=== PATIENT | male | born 1955 ===

== ENCOUNTER 2022-12-22 10:18 | Outpatient (REF) | payer MEDICARE, MEDICAID, SELFPAY ==
--- NOTE | 2022-12-23 09:28 | MHC.AU.MED ---
Medical Clearance for Hearing Instrumentation Date: 12/22/22 Patient Name: Bereket Moreland Date of : 1955 Primary Care Provider: Referring Provider: ANTONIO Sanchez We have seen your patient on 12/22/22 and have determined that they are a candidate for amplification (See accompanying report). Specifically, they would benefit from: Hearing aid use in both ears There is a statute that addresses Medical Evaluation Requirements prior to fitting a patient with a hearing aid. According to [place] statute 265 CMR:6.03(1), (a) General. Except as provided in 265 CMR 6.03(1)(b), a infant caregiver shall not sell a hearing aid unless the prospective user has presented to the infant caregiver a written statement signed by a licensed physician that states that the patient's hearing loss has been medically evaluated and the patient may be considered a candidate for a hearing aid. The medical evaluation must have taken place within the preceding six months. Please note: Due to the [place] Statute referenced above, we cannot accept a signature other than that of a licensed physician. PRE K SPECIAL EDUCATION TEACHER and PA signatures cannot be accepted. I am in agreement with the above recommendation. There is no medical contraindication for hearing instrumentation. Physician Signature Date Physician Name (Printed)
--- NOTE | 2022-12-23 09:41 | MHC.AU.HA1 ---
Hearing Aid Evaluation Date of Visit: 12/22/22 Fertilizer Supervisor Used: Not Applicable Historical Information: Description of Hearing: Left ear - Moderate to profound mixed loss Right ear-Severe to profound mixed loss Current personal amplification information, if applicable: Oticon Anirudh Pro BTE obtained from [facility] in 2015 per [employer] Summary: Patient is not able to use the right aid and left aid in inconsistent. He is eligible for new hearing aids as the current aids are over 8 years old. Speech discrimination scores on testing today likely does not reflect Bereket's ability. During the test he stopped repeating words and appeared frustrated with the listening task. New Binaural power BTE hearing aids are recommended to better facilitate communication and sound awareness for both ears. The neon electrician accompanying Bereket today will be helping with care/use of aids. Hearing Aid Prescription: Based on the individual?s shared listening needs, communication environments, dexterity, desire for connectivity, and personal preferences, the following prescription for amplification has been made: Right ear: Make, Model, Color: Phonak Karina P 79-UP BTE Graphite Locke Battery Size: 675 Type of Earmold/Dome/CShell/SlimTip: Microsonic Canal Shell Left ear:Left ear prescription to be same as Right Hearing Aid above: Make, Model, Color: Phonak Karina P 79-UP BTE Graphite Locke Battery Size: 675 Diving Fisher/Slim Tube: Type of Earmold/Dome/CShell/SlimTip: Microsonic Canal Shell Plan of Care: Patient wishes to purchase hearing aids as prescribed Earmold Impressions Taken Medical Clearance to be requested from PCP/ENT Hearing Instrument Fitting to be scheduled when materials arrive Primary Diagnosis: H90.3 Bilateral Sensorineural Hearing Loss Signature:Provider: Layo Perry, [facility]
== END 2022-12-22 10:19 | disposition home or self-care (01) ==
LOC: HO.SH 10:18
PROVIDERS: Visit Provider Physician Assistant Medical
DX: Z01.118 Encounter for examination of ears and hearing with other abnormal findings (principal); Z46.1 Encounter for fitting and adjustment of hearing aid; H90.3 Sensorineural hearing loss, bilateral
CPT/HCPCS: 92557; 92567; 92591; V5275

== ENCOUNTER 2023-02-26 09:49 | Outpatient (REF) | payer MEDICARE, MEDICAID, SELFPAY | END 2023-02-26 09:50 | disposition home or self-care (01) | LOC: HO.HAP 09:49 | PROVIDERS: Visit Provider Internal Medicine | DX: Z46.1 Encounter for fitting and adjustment of hearing aid (principal); H90.3 Sensorineural hearing loss, bilateral | CPT/HCPCS: 92595; V5011; V5020; V5160; V5261; V5264; V5266 ==

== ENCOUNTER 2023-03-22 10:46 | Outpatient (REF) | payer MEDICARE, MEDICAID, SELFPAY ==
--- NOTE | 2023-03-22 11:23 | MHC.AU.HA3 ---
Hearing Instrument Follow-Up- Binaural Date of Visit: 03/22/23 Right Ear: Make, Model, Color, Serial Number: Toby Collins P 70-UP BTE SN: [id number] Color: Graphite [employer] Professional Repair Warranty: 03/24/2026 Communications Professional Loss and Damage Warranty: 03/24/2026 [facility] Service Plan: 02/27/2024 Battery Size: 675 Earmold/Dome/CShell/SlimTip:Microsonic Canal Shell Medi-Shara Plus, pressure vent Dispensed By: [facility] Date of Fittin02/26/2023 Left Ear: Make, Model, Color, Serial Number: Toby Collins P70-UP BTE SN: [id number] Color: Graphite [employer] Professional Repair Warranty: 03/24/2026 [employer] Professional Loss and Damage Warranty: 03/24/2026 [facility] Service Plan: 02/27/2024 Battery Size: 675 Earmold/Dome/CShell/SlimTip: Microsonic Canal Shell Medi-Shara Plus, pressure vent Dispensed By: [facility] Date of Fittin02/26/2023 Follow-Up Summary: Bereket was accompanied by his sister's OUTREACH EDUCATOR, Bridget. Per Bridget, Bereket has not been wearing the hearing aids. Initially, Bereket reported they were not working; however, then he reported they were too loud. It was difficult to obtain an accurate report. A listening check demonstrated that the hearing aids are in good working order. Data logging showed about 8 hours of use per day. Trimmed tubing, as hearing aids were falling off pinnas due to thickness of glasses. Increased gain level to 95% and Bereket reported improved sound quality. Discussed that hearing aids are still significantly underfit and explained the balance between comfort and audibility. Bereket will try to wear the hearing aids more consistently and call if problems arise. Discussed need for periodic tubing changes and advised hearing aids will need to be reprogrammed for optimal speech intelligibility as he continues to adapt to the sound quality. Recommendations: Hearing instrument maintenance in 6 months, or sooner if needed. Please contact our clinic with any questions or concerns. Diagnosis Code(s): Primary Diagnosis: H90.6 Mixed Hearing Loss, Bilateral Signature: Provider: Layo Gunn, [facility]
== END 2023-03-22 10:47 | disposition home or self-care (01) ==
LOC: HO.HAP 10:46
PROVIDERS: Visit Provider Internal Medicine
DX: Z13.89 Encounter for screening for other disorder (principal)